=== PATIENT | male | born 1965 | race Caucasian/White ===

== ENCOUNTER 2018-06-02 12:29 | Inpatient (IN) ==
[2018-06-02] MEDS ORDERED: Aluminum/Magnesium/Simethacone Susp 30 ML UDC PO PRN (19:57)
[2018-06-02] MEDS ORDERED: Acetaminophen 325 MG Tablet PO PRN (19:57)
[2018-06-02] MEDS ORDERED: Melatonin 5 MG Tablet PO PRN (19:57)
[2018-06-03 06:18] VITALS: BP 137/84; PULSE 72; RESP 16; TEMP 97.9; O2SAT 97
[2018-06-03 08:08] LABS: Baso % (Auto) 0.6 % (0.0-2.0); Eos # (Auto) 0.1 th/mm3 (0.0-0.4); Eos % (Auto) 1.1 % (0.0-4.0); Hematocrit 41.8 % (39.0-51.0); Hemoglobin 14.3 gm/dL (13.0-17.0); Lymph % (Auto) 24.9 % (9.0-44.0); Mean Corpuscular HGB Conc 34.1 % (32.0-36.0); Mean Corpuscular Hemoglobin 34.3 pg (27.0-34.0); Mean Corpuscular Volume 100.5 fL (80.0-100.0); Mean Platelet Volume 7.6 fL (7.0-11.0); Mono # (Auto) 0.8 th/mm3 (0.0-0.9); Mono % (Auto) 10.1 % (0.0-8.0); Neut % (Auto) 63.3 % (16.0-70.0); Platelet Count 223 th/mm3 (150-450); Red Blood Count 4.16 mil/mm3 (4.50-5.90); Red Cell Distribution Width 13.8 % (11.6-17.2)
[2018-06-03 08:26] LABS: Albumin 3.2 g/dL (3.4-5.0); Anion Gap 9 meq/L (5-15); Aspartate Aminotransferase 85 U/L (15-37); Blood Urea Nitrogen 9 mg/dL (7-18); Calcium 8.8 mg/dL (8.5-10.1); Carbon Dioxide 22.8 meq/L (21.0-32.0); Chloride 107 meq/L (98-107); Glomerular Filtration Rate 78 mL/min (>89); Glucose,Random 87 mg/dL (74-106); Sodium 139 meq/L (136-145)
[2018-06-03 08:28] LABS: Alanine Aminotransferase 183 U/L (12-78); Cholesterol 244 mg/dL (120-200); Triglycerides 119 mg/dL (42-150)
[2018-06-03 08:30] LABS: Alkaline Phosphatase 83 U/L (45-117); Chol/HDL Ratio 3.77 Ratio; HDL Cholesterol 64.7 mg/dL (40.0-60.0); LDL Cholesterol,Calculated 156 mg/dL (0-99); Potassium 3.9 meq/L (3.5-5.1); Total Protein 6.9 g/dL (6.4-8.2)
[2018-06-03 09:50] LABS: Eosinophils 1 % (0-4); Lymphocytes 26 % (9-44); Monocytes 6 % (0-8); Myelocytes 2 % (0-0); Platelet Estimate Normal (Normal); Platelet Morphology Normal (Normal)
--- NOTE | 2018-06-03 10:55 | P.HPPSY ---
Provisional Diagnosis Admission Date: June 02, 2018 19:32 [place] I.: 1. Anxiety disorder, unspecified 2. Rule out benzodiazepine withdrawal delirium, now resolved [place] II.: Deferred Competence Certification of Person's Competence To Provide Express and Informed Consent I have personally examined Ish Ta, a person being served at [facility] on, June 03, 2018 1055. Express and informed consent means consent voluntarily given in writing, by a competent person, after sufficient explanation and disclosure of the subject matter involved to enable the person to make a knowing and willful decision without any element of force, fraud, deceit, duress, or other form of constraint or coercion. This person is 18 years of age or older, is not now known to be incompetent to consent to treatment with a guardian advocate, and does not have a health care surrogate or proxy currently making medical treatment decisions. I have found this person to be one of the following: [] Competent to provide express and informed consent, as defined above, for voluntary admission to this facility and is competent to provide express and informed consent for treatment. He/she has the consistent capacity to make well reasoned, willful, and knowing decisions concerning his or her medical or mental health treatment. The person fully and consistently understands the purpose of the admission for examination/placement and is fully capable of personally exercising all rights [place] [] Incompetent to provide express and informed consent to voluntary admission, and this is incompetent to provide express and informed consent to treatment. The person must be transferred to involuntary status and a petition for a guardian advocate filed with the Circuit Court. [X] Refusing to provide express and informed consent to voluntary admission but is competent to provide express and informed consent for treatment. The person must be discharged or transferred to involuntary status. Form shall be completed within 24 hours of a person's arrival at the receiving facility and filed in the clinical record of each person: 1. Admitted on a voluntary basis 2. Permitted to provide express and informed consent to his/her own treatment 3. Allowed to transfer from involuntary to voluntary status 4. Prior to permitting a person to consent to his or her own treatment after having been previously found incompetent to consent to treatment. History of Present Illness Capacity: Has capacity Chief Complaint: Cabral Act History of Present Illness: Mr. Ta is a 52-year-old male with a reported history of anxiety who presents in transfer from [facility] under a Cabral act. Documentation from outside hospital reviewed. Patient presented there and was medically hospitalized for abdominal pain. He allegedly verbalized some suicidal ideation in the setting of abrupt discontinuation of his benzodiazepines. He was seen in psychiatric consultation at outside hospital by Dr. Bui. Reviewing our electronic medical record, I see no previous psychiatric contact within our system. Patient seen and examined with nurse. Chart reviewed. Case discussed with nursing staff. No behavioral issues noted overnight. No evidence of any suicidality or homicidality while the patient has been under observation on the inpatient unit. Case discussed with counselor who has obtained collateral from both of patient's sisters. Sisters reportedly have no safety concerns regarding the patient and are comfortable with him being discharged home today. On my examination today, the patient is calm and cooperative with exam. There is no evidence of delirium or withdrawal at this time, and he is clinically sober. He is requesting discharge from the inpatient psychiatric unit today. He says that he presented to the outside hospital because of GI complaints including abdominal pain, poor oral intake and diarrhea in the setting of discontinuation of his benzodiazepines. He says that he no longer wanted to take these medications. He says that he stopped his flurazepam about 1 month ago and has been tapering his Klonopin, which was 3 mg/day at maximum. He adamantly denies ever making any sort of suicidal statements reporting "I did not say anything about wanting to kill myself." He is unsure where the allegations of suicidal ideation came from. He presently denies any suicidal or homicidal ideation, intent or plan saying that he wants to live for his children and ongoing life goals. I can elicit no depressive or hypomanic/manic symptoms. He denies any audiovisual hallucinations. I can elicit no paranoia, no ideas of reference, no feelings of thought manipulation or other delusional material. He does endorse some intermittent anxiety, mild in severity. There may be a social component to this anxiety and he does endorse some occasional sleep disturbance as a result, for which he was previously taking the flurazepam. The remainder of the psychiatric ROS is negative. Patient has no acute physical complaints. No ongoing GI complaints. Past psychiatric history: The patient reports a history of anxiety. He was previously under the care of a psychiatrist, the name of whom he does not recall who was prescribing him benzodiazepines as noted above. He says "she would just write me the scripts." He denies any history of psychiatric admissions. He denies any history of suicide attempts. He denies any history of violent behavior. Family history: The patient denies any family history of mental illness or suicide. Chemical dependency history: The patient denies any abuse of drugs or alcohol. There is some indication and documentation from outside hospital that the patient may have endorsed significant alcohol use and remote use of other substances. His urine toxicology at outside hospital was negative and his alcohol level was undetectable. Social history: The patient reports that he is of [employer] extraction. He was born in [place] and raised in [place]. He previously worked for [employer] and [employer] before taking early assisted. He is from his who resides in [place]. He has 2 children. He denies any history. Denies any legal history. Denies any access to guns or firearms. He believes in God. He denies any history of abuse or mistreatment. - Inpatient Certification Plans for Post Hospital Care: Home Review of Systems All other systems reviewed negative except as stated in HPI PMFSH - History History Provided By: Patient - Medical History Medical History: Medical History (Last Updated 06/03/18 @ 05:34 by Reji Liu RN) Alcoholic cirrhosis of liver Anxiety COPD (chronic obstructive pulmonary disease) Chronic alcohol abuse Hepatitis C - Family History Family History: Family History (Last Updated 06/03/18 @ 05:27 by Reji Liu RN) Father Family history of diabetes mellitus Mother Family history of diabetes mellitus Family history of hypertension - Tobacco History Second Hand Smoke Exposure: No Tobacco Use In Past 30 Days: Yes Smoking Status: Heavy tobacco smoker Tobacco Type: Cigarettes - Alcohol History How Often Do You Have a Drink Containing Alcohol: Monthly or less - Substance Use History Substance History: No History of Abuse - Travel History Recent Travel in the [place] Within the Last 8 Weeks: No Recent Travel Out of the Country Within the Last 8 Weeks: No - Immunization History Tetanus Immunization: <5 Years Hx Influenza Vaccine This Season: No Quality Measures - Psychiatric History Psychological trauma history: See above. - Patient Strengths Patient's strengths (minimum of 2): Attending to basic needs. Verbally fluent. Medications and Allergies Active Medications: Active Medications Acetaminophen (Tylenol) 650 mg PO Q4H PRN PRN Reason: Pain 1-5 or Temp >101F Al Hydrox/Mg Hydrox/Simethicone (Mag-Al Plus Susp Liq) 30 ml PO Q6H PRN PRN Reason: DYSPEPSIA Al Hydroxide/Mg Hydroxide (Milk Of Magnesia Liq) 30 ml PO Q12H PRN PRN Reason: Mild Constipation Melatonin (Melatonin) 5 mg PO HS PRN PRN Reason: INSOMNIA Nicotine (Habitrol 21 Mg Patch.24 Hr) 1 patch T-DERMAL DAILY PRN PRN Reason: Nicotine craving Patch Removal (Remove Old Patch) 1 each T-DERMAL DAILY MARIEL Last Admin: 06/03/18 09:51 Dose: Not Given Allergies Allergy/AdvReac Type Severity Reaction Status Date / Time Penicillins Allergy Unknown Verified 06/02/18 19:57 Home Medications Medication Instructions Recorded Confirmed Type budesonide-formoterol [Symbicort] 2 puff INHALATION BID 06/03/18 06/03/18 History clonazepam [Klonopin] 1 mg PO TID 06/03/18 06/03/18 History Results - Labs CBC & Chem 7: 06/03/18 07:35 06/03/18 07:35 Labs: Laboratory Results - last 24 hr 06/03/18 06/03/18 07:35 07:35 WBC 8.0 RBC 4.16 L Hgb 14.3 Hct 41.8 MCV 100.5 H MCH 34.3 H MCHC 34.1 RDW 13.8 Plt Count 223 MPV 7.6 Prelim Diff (Auto) Slide review pending Neut % (Auto) 63.3 Lymph % (Auto) 24.9 [place] % (Auto) 10.1 H Eos % (Auto) 1.1 Baso % (Auto) 0.6 Neut # (Auto) 5.0 Lymph # (Auto) 2.0 [place] # (Auto) 0.8 Eos # (Auto) 0.1 Baso # (Auto) 0.0 WBC Differential Manual diff final Seg Neuts % (Manual) 65 Lymphocytes % (Manual) 26 Monocytes % (Manual) 6 Eosinophils % (Manual) 1 Myelocytes % (Man) 2 H Abs Neuts (Manual) 5.4 Differential Comment . Platelet Estimate Normal Platelet Morphology Normal Sodium 139 Potassium 3.9 Chloride 107 Carbon Dioxide 22.8 Anion Gap 9 BUN 9 Creatinine 1.00 Estimated GFR 78 L Random Glucose 87 Calcium 8.8 Total Bilirubin 0.6 AST 85 H ALT 183 H Alkaline Phosphatase 83 Total Protein 6.9 Albumin 3.2 L Triglycerides 119 Cholesterol 244 H LDL Cholesterol, Calc 156 H HDL Cholesterol 64.7 H Cholesterol/HDL Ratio 3.77 Labs reviewed. Labs from outside hospital reviewed. TSH was low but FT4 was wnl. Exam Vital signs: Vital Signs 06/02/18 19:00 06/03/18 06:00 Temperature 97.2 F L 97.9 F Pulse Rate 80 72 Respiratory Rate 18 16 Blood Pressure 128/93 H 137/84 Pulse Oximetry 98 97 Intake & Output 06/02/18 06/03/18 06/03/18 18:59 06:59 18:59 Weight 86.7 kg Other: Weight On Admission 86.7 kg Narrative: Physical exam completed at outside hospital. On my examination today, the patient appears to be in no acute physical distress. No motor abnormalities noted. No hand tremor, no diaphoresis, no mydriasis, no other signs of withdrawal. No signs of intoxication noted. Labs and vital signs reviewed. Mental Status Examination Appearance: Appropriate Consciousness: Alert Orientation: x4 Motor Activity: Normal gait Speech: Unremarkable Language: Adequate Fund of Knowledge: Adequate Attention and Concentration: Adequate Memory: Unremarkable (Grossly intact on clinical exam) Mood: Appropriate, Anxious (Mild) Affect: Appropriate Thought Process & Associations: Intact, Logical, Goal directed, Linear Thought Content: Appropriate Hallucination Type: None Delusion Type: None Suicidal Ideation: No Suicidal Plan: No Suicidal Intention: No Homicidal Ideation: No Homicidal Plan: No Homicidal Intention: No Insight: Adequate Judgment: Adequate Assessment and Plan - Assessment (1) Anxiety disorder Code(s): F41.9 - Anxiety disorder, unspecified Status: Acute - Plan Plan: 52-year-old male with psychiatric history as detailed above who presents in transfer from outside hospital under a Cabral act. On my examination today, the patient denies any suicidal or homicidal ideation, intent or plan. Besides some mild anxiety, there is no evidence of unstable mental illness as defined under the Cabral act in this patient at this time. He appears to be attending to his basic needs. We have obtained reassuring collateral information from the patient's sisters. Synthesizing this information and based on the available evidence, I air traffic control manager that the patient does not presently meet the Cabral act criteria. There is no evidence of imminent risk of harm to self or others, nor is there evidence of self-care deficit to substantiate involuntary psychiatric hospitalization. I wonder if the patient was somewhat delirious or encephalopathic, possibly in the context of benzodiazepine withdrawal, when he made the alleged suicidal statements. There is no evidence of withdrawal or delirium at present. The patient is requesting discharge from the inpatient psychiatric unit today, and I have no basis to retain him over his objection. I did offer the patient voluntary psychiatric hospitalization for the purpose of initiating medications to help manage his anxiety, such as an SSRI, but he declines this. Patient will be discharged home today with psychiatric follow- up as arranged by counselor. Patient is also to follow up with primary care. I have counseled the patient to abstain from substances of abuse. I have counseled the patient regarding warning signs for need to return to the psychiatric emergency room as part of a general safety plan. No prescriptions written on discharge. This note serves also as my discharge summary. Justification for Continued Inpatient Stay: N/A.
[2018-06-03 17:59] LABS: Hemoglobin A1c 4.8 % (4.3-6.0)
== END 2018-06-03 18:45 | disposition home or self-care (01) ==
LOC: H270 19:32
PROVIDERS: ADMIT Psychiatry & Neurology Psychiatry; ATTEND Psychiatry & Neurology Psychiatry